=== PATIENT | female | born 1965 | race Caucasian/White ===

== ENCOUNTER → 2017-11-30 07:49 | Outpatient (CLI) | payer BC, SELFPAY ==
--- NOTE | 2017-12-01 09:49 | LEAS ---
Arterial Study - Arterial Study Arterial Study: This is a 52-year-old female with a history of smoking. The patient presents with paresthesias and discoloration in her right foot, associated with pain and discomfort. Suspecting the presence of atherosclerotic peripheral arterial occlusive disease, the patient was brought to the noninvasive vascular laboratory at this time for the purpose of bilateral noninvasive lower extremity arterial assessment. Doppler signal assessment was used to evaluate the pulses at ankle level bilaterally. On the right, the posterior tibial and dorsalis pedis pulses were biphasic. The left posterior tibial pulse was triphasic. The left dorsalis pedis pulse was biphasic. Segmental limb pressures were obtained bilaterally. The right low thigh pressure was measured at 106 mmHg. The right calf pressure was measured at 109 mmHg. The right ankle pressure, as determined by posterior tibial pulse, was measured at 98 mmHg. The right ankle pressure, as determined by dorsalis pedis pulse, was measured at 95 mmHg. The right digital pressure was measured at 86 mmHg. The left ankle pressure, as determined by posterior tibial pulse, was measured at 137 mmHg. The left ankle pressure, as determined by dorsalis pedis pulse, was measured at 136 mmHg. The left digital pressure was measured at 75 mmHg. Pulse-volume recordings were obtained bilaterally and segmentally. Waveform amplitudes appeared to be diminished at ankle and digital levels bilaterally. Resting ankle-brachial indices were calculated bilaterally. The resting right ankle-brachial index was calculated to be 0.85. The resting left ankle-brachial index was calculated to be 1.19. Digital-brachial indices were calculated bilaterally. The right digital-brachial index was calculated to be 0.75. The left digital-brachial index was calculated to be 0.65. Impression: Based upon the findings of this resting noninvasive lower extremity arterial study, there is evidence of mild arterial occlusive disease in the lower extremities bilaterally. Biphasic waveforms are noted at ankle level on the right. Triphasic and biphasic waveforms were noted at ankle level on the left. The resting right ankle-brachial index is mildly diminished, suggesting mild impairment of arterial flow at ankle level in the right lower extremity. The resting left ankle-brachial index is normal, suggesting relatively normal arterial flow to ankle level in the left lower extremity. The right digital-brachial index is normal. The left digital-brachial index is mildly diminished, suggesting the presence of mild, distal, small-vessel arterial occlusive disease in the left lower extremity. Clinical correlation is advised.
--- NOTE | 2017-12-01 09:57 | LEAS_ITS ---
Arterial Study - Arterial Study Arterial Study: This is a 52-year-old female with a history of smoking. The patient presents with paresthesias and discoloration in her right foot, associated with pain and discomfort. Suspecting the presence of atherosclerotic peripheral arterial occlusive disease, the patient was brought to the noninvasive vascular laboratory at this time for the purpose of bilateral noninvasive lower extremity arterial assessment. Doppler signal assessment was used to evaluate the pulses at ankle level bilaterally. On the right, the posterior tibial and dorsalis pedis pulses were biphasic. The left posterior tibial pulse was triphasic. The left dorsalis pedis pulse was biphasic. Segmental limb pressures were obtained bilaterally. The right low thigh pressure was measured at 106 mmHg. The right calf pressure was measured at 109 mmHg. The right ankle pressure, as determined by posterior tibial pulse, was measured at 98 mmHg. The right ankle pressure, as determined by dorsalis pedis pulse, was measured at 95 mmHg. The right digital pressure was measured at 86 mmHg. The left ankle pressure, as determined by posterior tibial pulse, was measured at 137 mmHg. The left ankle pressure, as determined by dorsalis pedis pulse, was measured at 136 mmHg. The left digital pressure was measured at 75 mmHg. Pulse-volume recordings were obtained bilaterally and segmentally. Waveform amplitudes appeared to be diminished at ankle and digital levels bilaterally. Resting ankle-brachial indices were calculated bilaterally. The resting right ankle-brachial index was calculated to be 0.85. The resting left ankle- brachial index was calculated to be 1.19. Digital-brachial indices were calculated bilaterally. The right digital- brachial index was calculated to be 0.75. The left digital-brachial index was calculated to be 0.65. Impression: Based upon the findings of this resting noninvasive lower extremity arterial study, there is evidence of mild arterial occlusive disease in the lower extremities bilaterally. Biphasic waveforms are noted at ankle level on the right. Triphasic and biphasic waveforms were noted at ankle level on the left. The resting right ankle-brachial index is mildly diminished, suggesting mild impairment of arterial flow at ankle level in the right lower extremity. The resting left ankle-brachial index is normal, suggesting relatively normal arterial flow to ankle level in the left lower extremity. The right digital- brachial index is normal. The left digital-brachial index is mildly diminished , suggesting the presence of mild, distal, small-vessel arterial occlusive disease in the left lower extremity. Clinical correlation is advised.
== END ==
PROVIDERS: Family Provider Family Medicine; PCP Family Medicine; Visit Provider Podiatrist
DX: I73.89 Other specified peripheral vascular diseases (principal); G90.09 Other idiopathic peripheral autonomic neuropathy
CPT/HCPCS: 93923

== ENCOUNTER → 2018-01-02 06:28 | Outpatient (CLI) | payer BC, SELFPAY ==
--- NOTE | 2018-01-02 10:48 | NEURO ---
NCS and/or EMG Patient Report Ordering Doctor: Nic Mendiola DATE OF SERVICE: 01/02/18 Amelia Hester is a 52-year-old female who presents for electrodiagnostic testing of the lower limbs. She has chief complaint of burning in both feet. Electrodiagnostic findings: Peroneal motor nerve demonstrates normal distal latency amplitude and conduction velocity bilaterally. Normal tibial motor response bilaterally. Normal tibial and peroneal F waves. Normal H reflex bilaterally. Sensory responses are within normal limits. On needle EMG, complex repetitive discharges are noted in the left anterior tibialis. All other muscles tested showed no evidence of denervation with normal motor unit action potentials. Electrodiagnostic impression: This is an abnormal study. 1. Electrodiagnostic findings demonstrate some old denervation in the left L5 dermatome, as evidenced by the presence of complex repetitive discharges on needle EMG. This is a relatively nonspecific finding. 2. There is no electrodiagnostic evidence for acute lumbosacral radiculopathy. 3. There is no electrodiagnostic evidence for peripheral polyneuropathy. If any further questions please not hesitate contact me
== END ==
PROVIDERS: Family Provider Family Medicine; PCP Family Medicine; Visit Provider Podiatrist
DX: I73.89 Other specified peripheral vascular diseases (principal); G90.09 Other idiopathic peripheral autonomic neuropathy
CPT/HCPCS: 95886; 95912

== ENCOUNTER → 2018-01-02 14:25 | Outpatient (CLI) | payer BC, SELFPAY ==
--- NOTE | 2018-01-02 14:28 | BI_ITS ---
MAMMOGRAPHY - BILATERAL SCREENING REASON FOR EXAM: Female, 52 years old. Routine annual screening examination. PERTINENT HISTORY: Grandmother with breast cancer. TECHNIQUE: Digital bilateral breast meg (3D mammographic acquisition) in the CC and MLO projections. 2-D mediolateral oblique (MLO) and craniocaudad (CC) views of both breasts were obtained. CAD: Full Field Digital Mammography with Computer Added Detection was performed. COMPARISON: Comparison is made with prior study dated December 07, 2016 and August 14, 2014. FINDINGS: Breast Composition: The breasts are extremely dense, which lowers the sensitivity of mammography. There are no dominant masses or suspicious calcifications. No other significant abnormalities are identified. There has been no significant change since the prior study. BI/SCREENING MAMM (CAD), BILAT IMPRESSION: Stable bilateral screening mammogram. Yearly follow-up mammogram recommended. (A) ASSESSMENT CATEGORY: BIRADS Category 1: Negative. A letter regarding these results will be sent to the patient by the facility within 30 days. Approximately 10% of breast cancers are not detected by mammography. A normal mammogram should not delay biopsy of a clinically suspicious abnormality. [id number] Electronically Signed: Aime Zimmerman MD at 15:20 EDT Tel [phone], Service support ,
== END ==
PROVIDERS: Family Provider Family Medicine; PCP Family Medicine; Visit Provider Nurse Practitioner Family
DX: Z12.31 Encounter for screening mammogram for malignant neoplasm of breast (principal); Z80.3 Family history of malignant neoplasm of breast
CPT/HCPCS: 77062; 77063; 77067; G0279

== ENCOUNTER → 2018-12-06 07:30 | Outpatient (CLI) | payer BC, SELFPAY ==
--- NOTE | 2018-12-06 07:38 | AAVD_ITS ---
Reason For Study: Atherosclerosis Aorta Measurements Aorta Doppler Measurements Proximal aorta measures1.78 x 1.72cm. in cross- Peak systolic flow velocities within the proximal sectional axis. aorta measure 74.3 cm/sec. Proximal aorta measures1.76cm. in longitudinal Peak systolic flow velocities within the mid aorta axis. measure 52.5 cm/sec. Mid aorta measures0.99 x 0.96cm. in cross- Peak systolic flow velocities within the distal sectional axis. aorta measure 48.7 cm/sec. Mid aorta measures0.96cm. in longitudinal axis. Distal aorta measures0.83 x 0.85cm. in cross- sectional axis. Distal aorta measures0.83cm. in longitudinal axis. Left Iliac Artery Left iliac artery measures 0.43 x 0.45 cm. in the cross-sectional axis. Left iliac artery measures 0.48 cm. in the longitudinal axis. Peak systolic velocity in the left iliac artery measures 253.4 cm/sec. Right Iliac Artery Right iliac artery measures 0.40 x 0.40 cm. in the cross-sectional axis. Right iliac artery measures 0.44 cm. in the longitudinal axis. Peak systolic velocity in the right iliac artery measures 85.5 cm/sec. Procedure Aorta IVC Iliac vasculature or bypass grafts [id number]. Exam performed in department. Interpretation Summary 1. no arortic aneurysm or stenosis. 2. Left common iliac moderate stenosis. Ordering Physician: Karl Silver Referring Physician: Yeison Miner Performed By: Padmaja Sherwood RVT
== END ==
PROVIDERS: Referring Provider Surgery Vascular Surgery; Visit Provider Surgery Vascular Surgery
DX: I70.211 Atherosclerosis of native arteries of extremities with intermittent claudication, right leg (principal); F17.210 Nicotine dependence, cigarettes, uncomplicated; D64.9 Anemia, unspecified; M79.671 Pain in right foot; M79.672 Pain in left foot
CPT/HCPCS: 93978

== ENCOUNTER → 2019-02-05 16:12 | Outpatient (CLI) | payer BC, SELFPAY ==
--- NOTE | 2019-02-05 16:15 | BI_ITS ---
MAMMOGRAPHY - BILATERAL SCREENING 3-D TOMOSYNTHESIS REASON FOR EXAM: Female, 53 years old. Bilateral Screening 3-D tomosynthesis PERTINENT HISTORY: Maternal also paternal grandmother, paternal aunt with history of breast cancer. TECHNIQUE: 2-D mammograms and 3-D Tomosynthesis of the breast (s) were performed. CAD was performed. COMPARISON: 01/02/2018, 12/07/2016, and 08/19/2014 FINDINGS: The breast composition is heterogeneously dense that can obscure small breast masses. Scattered benign calcifications are seen. No dense spiculated masses or suspicious microcalcifications are identified. No architectural distortion is identified. There is no skin thickening or retraction. There has been no significant change since the prior study. BI/SCREEN MAMM (CAD) W/ABHI BILAT IMPRESSION: No mammographic signs of malignancy. Routine yearly mammograms recommended. ASSESSMENT CATEGORY: BIRADS Category 2: Benign. A letter regarding these results will be sent to the patient by the facility within 30 days. FOLLOW UP RECOMMENDATION: Yearly follow up mammogram recommended. (A) Approximately 10% of breast cancers are not detected by mammography. A normal mammogram should not delay biopsy of a clinically suspicious abnormality. Electronically Signed: Kem Arrieta MD at 14:10 EDT Tel [phone], Service support ,
== END ==
DX: Z12.31 Encounter for screening mammogram for malignant neoplasm of breast (principal)
CPT/HCPCS: 77063; 77067

== ENCOUNTER → 2020-03-11 17:00 | Outpatient (CLI) | payer OTHER, SELFPAY ==
--- NOTE | 2020-03-11 16:40 | BI_ITS ---
MAMMOGRAPHY - BILATERAL SCREENING REASON FOR EXAM: Female, 54 years old. Routine annual screening examination. PERTINENT HISTORY: Grandmothers with breast cancer. Aunt with breast cancer. TECHNIQUE: Digital bilateral breast abhi (3D mammographic acquisition) in the CC and MLO projections. 2-D mediolateral oblique (MLO) and craniocaudad (CC) views of both breasts were obtained. CAD: Full Field Digital Mammography with Computer Added Detection was performed. COMPARISON: Comparison is made with prior study dated 02/05/2019 and 01/02/2018. FINDINGS: Breast Composition: The breasts are extremely dense, which lowers the sensitivity of mammography. There are no dominant masses or suspicious calcifications. No other significant abnormalities are identified. There has been no significant change since the prior study. BI/SCREEN MAMM (CAD) W/ABHI BILAT IMPRESSION: Stable bilateral screening mammogram. Yearly follow-up mammogram recommended. (A) ASSESSMENT CATEGORY: BIRADS Category 1: Negative. A letter regarding these results will be sent to the patient by the facility within 30 days. Approximately 10% of breast cancers are not detected by mammography. A normal mammogram should not delay biopsy of a clinically suspicious abnormality. [id number] Electronically Signed: Aime Zimmerman, at 8:19 EDT , Service support ,
== END ==
PROVIDERS: Referring Provider Nurse Practitioner Family; Visit Provider Nurse Practitioner Family
DX: Z12.31 Encounter for screening mammogram for malignant neoplasm of breast (principal); Z80.3 Family history of malignant neoplasm of breast
CPT/HCPCS: 77063; 77067

== ENCOUNTER → 2020-05-04 07:48 | Outpatient (CLI) | payer OTHER, SELFPAY ==
--- NOTE | 2020-05-04 07:52 | ART_ITS ---
Reason For Study: Atherosclerosis Procedure A bilateral lower extremity continuous wave Doppler with analog waveform analysis and ankle brachial indexes. Left Segmental Pressures Left brachial= 139mmHg. Left posterior tibial artery = 128mmHg. Left dorsalis pedis artery = 95mmHg. The left dorsalis pedis waveforms are biphasic. The left posterior tibial artery waveforms are biphasic. Right Segmental Pressures Right brachial= 140mmHg. Right posterior tibial artery = 123mmHg. Right dorsalis pedis artery = 109mmHg. The right dorsalis pedis waveforms are biphasic. The right posterior tibial artery waveforms are biphasic. Indices The right ankle brachial index by the dorsalis pedis is 0.78. The right ankle brachial index by the posterior tibial artery is 0.88. The left ankle brachial index by the dorsalis pedis is 0.68. The left ankle brachial index by the posterior tibial artery is 0.91. Interpretation Summary Bilateral mild occlussive disease with LORI 0.88 and 0.91 with biphasic flow bilaterally. Ordering Physician: Karl Silver Referring Physician: Yeison Rutherford Performed By: Padmaja Sherwood RVT
--- NOTE | 2020-05-04 07:53 | AAVD_ITS ---
Reason For Study: Atherosclerosis Aorta Measurements Aorta Doppler Measurements Proximal aorta measures2.02 x 2.04cm. in cross- Peak systolic flow velocities within the proximal sectional axis. aorta measure 76.2 cm/sec. Proximal aorta measures2.02cm. in longitudinal Peak systolic flow velocities within the mid aorta axis. measure 49.7 cm/sec. Mid aorta measures1.12 x 1.15cm. in cross- Peak systolic flow velocities within the distal sectional axis. aorta measure 54.4 cm/sec. Mid aorta measures1.16cm. in longitudinal axis. Distal aorta measures1.02 x 1.02cm. in cross- sectional axis. Distal aorta measures1.00cm. in longitudinal axis. Left Iliac Artery Left iliac artery measures 0.55 x 0.56 cm. in the cross-sectional axis. Left iliac artery measures 0.58 cm. in the longitudinal axis. Peak systolic velocity in the left iliac artery measures 119.8 cm/sec. Right Iliac Artery Right iliac artery measures 0.36 x 0.34 cm. in the cross-sectional axis. Right iliac artery measures 0.43 cm. in the longitudinal axis. Peak systolic velocity in the right iliac artery measures 107 cm/sec. Procedure Aorta IVC Iliac vasculature or bypass grafts [id number]. Exam performed in department. Interpretation Summary No aortoiliac stenosis or aneurysm. Ordering Physician: Karl Silver Referring Physician: Yeison Rutherford Performed By: Padmaja Sherwood RVT
== END ==
LOC: CVS 07:50
PROVIDERS: Referring Provider Surgery Vascular Surgery; Visit Provider Surgery Vascular Surgery
DX: I70.211 Atherosclerosis of native arteries of extremities with intermittent claudication, right leg (principal); M79.671 Pain in right foot; M79.672 Pain in left foot; F17.200 Nicotine dependence, unspecified, uncomplicated
CPT/HCPCS: 93922; 93978

== ENCOUNTER → 2021-03-15 07:07 | Outpatient (CLI) | payer OTHER, SELFPAY ==
--- NOTE | 2021-03-15 07:10 | BI_ITS ---
MAMMOGRAPHY - BILATERAL SCREENING REASON FOR EXAM: Female, 55 years old. Routine annual screening examination. PERTINENT HISTORY: Grandmother with breast cancer. Aunt with breast cancer. TECHNIQUE: Digital bilateral breast abhi (3D mammographic acquisition) in the CC and MLO projections. 2-D mediolateral oblique (MLO) and craniocaudad (CC) views of both breasts were obtained. CAD: Full Field Digital Mammography with Computer Added Detection was performed. COMPARISON: Comparison is made with prior study dated 03/11/2020 and 02/05/2019. FINDINGS: Breast Composition: The breasts are extremely dense, which lowers the sensitivity of mammography. There are no dominant masses or suspicious calcifications. No other significant abnormalities are identified. There has been no significant change since the prior study. BI/SCRN MAMM (CAD)W/ABHI BILAT IMPRESSION: Stable bilateral screening mammogram. Yearly follow-up mammogram recommended. (A) ASSESSMENT CATEGORY: BIRADS Category 1: Negative. A letter regarding these results will be sent to the patient by the facility within 30 days. Approximately 10% of breast cancers are not detected by mammography. A normal mammogram should not delay biopsy of a clinically suspicious abnormality. [id number] Electronically Signed: Aime Zimmerman MD at 8:26 EDT , Service support ,
== END ==
PROVIDERS: PCP Nurse Practitioner Family; Referring Provider Nurse Practitioner Family; Visit Provider Nurse Practitioner Family
DX: Z12.31 Encounter for screening mammogram for malignant neoplasm of breast (principal)
CPT/HCPCS: 77063; 77067

== ENCOUNTER 2021-08-30 08:47 | Outpatient (CLI) | payer OTHER, SELFPAY ==
--- NOTE | 2021-08-30 09:02 | AAVD_ITS ---
Reason For Study: Atherosclerosis w/ claudication Aorta Measurements Aorta Doppler Measurements Proximal aorta measures1.72 x 1.76cm. in cross- Peak systolic flow velocities within the proximal sectional axis. aorta measure 74.3 cm/sec. Proximal aorta measures1.75cm. in longitudinal Peak systolic flow velocities within the mid aorta axis. measure 54.5 cm/sec. Mid aorta measures1.09 x 1.05cm. in cross- Peak systolic flow velocities within the distal sectional axis. aorta measure 61.1 cm/sec. Mid aorta measures1.08cm. in longitudinal axis. Distal aorta measures1.04 x 1.06cm. in cross- sectional axis. Distal aorta measures1.05cm. in longitudinal axis. Left Iliac Artery Left iliac artery measures 0.55 x 0.55 cm. in the cross-sectional axis. Left iliac artery measures 0.61 cm. in the longitudinal axis. Peak systolic velocity in the left iliac artery measures 154.9 cm/sec. Right Iliac Artery Right iliac artery measures 0.52 x 0.57 cm. in the cross-sectional axis. Right iliac artery measures 0.54 cm. in the longitudinal axis. Peak systolic velocity in the right iliac artery measures 111.1 cm/sec. Procedure Aorta IVC Iliac vasculature or bypass grafts [id number]. Exam performed in department. VL/Abd Aortic/IVC Duplex scan Interpretation Summary No evidence of aortic iliac stenosis or aneurysm noted. Ordering Physician: Karl Silver Referring Physician: Yeison Miner Performed By: Padmaja Sherwood RVT
--- NOTE | 2021-08-30 09:05 | ART_ITS ---
Reason For Study: Atherosclerosis w/ claudication Procedure A bilateral lower extremity continuous wave Doppler with analog waveform analysis and ankle brachial indexes. Left Segmental Pressures Left brachial= 103mmHg. Left posterior tibial artery = 105mmHg. Left dorsalis pedis artery = 102mmHg. Left digit = 87 mmHg. The left dorsalis pedis waveforms are biphasic. The left posterior tibial artery waveforms are biphasic. Right Segmental Pressures Right brachial= 133mmHg. Right posterior tibial artery = 104mmHg. Right dorsalis pedis artery = 85mmHg. Right digit = 90 mmHg. The right dorsalis pedis waveforms are biphasic. The right posterior tibial artery waveforms are biphasic. Indices The right ankle brachial index by the dorsalis pedis is 0.64. The right ankle brachial index by the posterior tibial artery is 0.78. The right digital-brachial index is 0.68. The left ankle brachial index by the dorsalis pedis is 0.77. The left ankle brachial index by the posterior tibial artery is 0.79. The left digital-brachial index is 0.65. VL/Ankle Brachial Index Interpretation Summary Bilateral mild occlusive disease with an LORI 0.78 on the right and 0.79 on the left. Ordering Physician: Karl Silver Referring Physician: Yeison Miner Performed By: Padmaja Sherwood RVT
--- NOTE | 2021-08-30 09:08 | CDU_ITS ---
Reason For Study: Dizziness Rt. Velocities/BP Lt. Velocities/BP Prox CCA 99.5/38.2 cm/sec. Prox CCA 94.9/33.5 cm/sec. Mid CCA 86.5/30.4 cm/sec. Mid CCA 97.4/36 cm/sec. Dist CCA 89.1/33 cm/sec. Dist CCA 106/44.6 cm/sec. Prox ICA 84.6/29.8 cm/sec. Prox ICA 93.7/29.8 cm/sec. Mid ICA 101/40.7 cm/sec. Mid ICA 114.8/40.2 cm/sec. Dist ICA 104.7/38.9 cm/sec. Dist ICA 108.2/42.4 cm/sec. Rt. ICA/CCA = 1.18. Lt. ICA/CCA = 1.18. Prox ECA 145.5/20.4 cm/sec. Prox ECA 210.6/31.9 cm/sec. Rt. Vert. 76.5/28.6 cm/sec. Lt. Vert. 42.1 cm/sec. Right Extracranial There is heterogeneous, irregular atherosclerotic plaque noted in the right common carotid artery. There is heterogeneous, irregular atherosclerotic plaque noted in the right internal carotid artery. There is heterogeneous, irregular atherosclerotic plaque noted in the right external carotid artery. Antegrade flow is noted in the right vertebral artery. Left Extracranial There is heterogeneous, irregular atherosclerotic plaque noted in the left common carotid artery. There is heterogeneous, smooth atherosclerotic plaque noted in the left internal carotid artery. There is heterogeneous, irregular atherosclerotic plaque noted in the left external carotid artery. Abnormal waveform morphology noted in the left vertebral artery. Procedure Carotid Duplex [id number]. This is a Carotid Duplex examination using B-mode, color flow and specral Doppler. Exam performed in department. VL/Carotid Duplex Ultrasound Interpretation Summary Mild (<50%) stenosis right extracranial internal carotid. Mild (<50%) stenosis left extracranial internal carotid. Flow within the left verterbral artery is retrograde, consist ent with a subclavian steal phenomenon. Ordering Physician: Yeison Miner Referring Physician: Karl Silver Performed By: Padmaja Sherwood RVT
== END 2021-08-30 23:59 | disposition home or self-care (01) ==
LOC: CVS 08:51
PROVIDERS: PCP Nurse Practitioner Family; Referring Provider Surgery Vascular Surgery; Visit Provider Surgery Vascular Surgery
DX: R42 Dizziness and giddiness (principal); I70.211 Atherosclerosis of native arteries of extremities with intermittent claudication, right leg; M79.671 Pain in right foot; M79.672 Pain in left foot; F17.210 Nicotine dependence, cigarettes, uncomplicated
CPT/HCPCS: 93880; 93922; 93978

== ENCOUNTER 2022-03-02 07:49 | Outpatient (CLI) | payer OTHER, SELFPAY ==
--- NOTE | 2022-03-02 07:55 | ECHOD_ITS ---
Reason For Study: BRUIT Procedure This was a 2D Doppler, Color Flow transthoracic echocardiogram. The study was technically difficult. Exam performed in department. Left Ventricle Normal LV size. Left ventricular systolic function is normal. The estimated ejection fraction is 65 %. No evidence for diastolic dysfunction. No regional wall motion abnormalities noted. Right Ventricle Normal RV size. Normal systolic function. Atria Normal left atrium. Normal right atrium. No doppler evidence for ASD. Mitral Valve There is no mitral annular calcification. Normal mitral valve. Trivial mitral valve insufficiency. Tricuspid Valve Normal tricuspid valve. Trivial tricuspid valve insufficiency. Right ventricular systolic pressure estimated to be 28 mmHg. Aortic Valve The aortic valve is not well visualized. Pulmonic Valve The pulmonic valve is not well visualized. Great Vessels The aortic root is not well visualized. Pericardium/Pleural No pericardial effusion. MMode/2D Measurements & Calculations LVIDd: 4.3 cm IVSd: 0.63 cm LAV(MOD-bp): 40.3 ml LVIDs: 2.5 cm LVPWd: 0.90 cm LAV(MOD-bp) Indexed: 24.2 ml/m2 RVDd: 3.3 cm FS: 42.7 % LAV(MOD-sp2): 60.2 ml LAV(MOD-sp4): 25.8 ml SV(MOD-sp4): 33.1 ml SV(sp4-el): 34.6 ml LVAd ap4: 20.6 cm2 LVLd ap4: 7.7 cm EDV(MOD-sp4): 45.6 ml EDV(sp4-el): 46.8 ml LVAs ap4: 9.4 cm2 LVLs ap4: 6.1 cm ESV(MOD-sp4): 12.6 ml ESV(sp4-el): 12.2 ml EF(MOD-sp4): 72.4 % EF(sp4-el): 73.9 % LA A4 area: 12.6 cm2 RA A4 area: 13.7 cm2 Time Measurements MV dec time: 0.11 sec Doppler Measurements & Calculations MV E max julito: 69.7 cm/sec Lat Peak E' Julito: 13.1 cm/sec Med Peak E' Julito: 7.7 cm/sec MV A max julito: 55.9 cm/sec E/E' lat: 5.3 E/E' med: 9.0 MV E/A: 1.2 MV V2 max: 93.8 cm/sec MV dec slope: 1042 cm/sec2 Ao V2 max: 140.2 cm/sec MV max P.5 mmHg Ao max P.9 mmHg MV V2 mean: 54.0 cm/sec Ao V2 mean: 99.5 cm/sec MV mean P.3 mmHg Ao mean P.4 mmHg MV V2 VTI: 27.3 cm Ao V2 VTI: 32.1 cm LV V1 max: 130.5 cm/sec PA V2 max: 65.7 cm/sec TR max julito: 251.7 cm/sec LV V1 max P.8 mmHg TR max P.3 mmHg LV V1 mean P.4 mmHg LV V1 mean: 86.7 cm/sec LV V1 VTI: 29.9 cm ECHO/Echo Complete Interpretation Summary The study was technically difficult. Left ventricular systolic function is normal. The estimated ejection fraction is 65 %. Trivial mitral valve insufficiency. Trivial tricuspid valve insufficiency. Right ventricular systolic pressure estimated to be 28 mmHg. No evidence for diastolic dysfunction. Ordering Physician: Yeison Miner Performed By: Tori Billings RCS
== END 2022-03-02 23:59 | disposition home or self-care (01) ==
LOC: CVS 07:54
PROVIDERS: PCP Nurse Practitioner Family; Visit Provider Nurse Practitioner Family
DX: R60.0 Localized edema (principal); R09.89 Other specified symptoms and signs involving the circulatory and respiratory systems; I34.0 Nonrheumatic mitral (valve) insufficiency; R00.2 Palpitations; I07.1 Rheumatic tricuspid insufficiency; I70.8 Atherosclerosis of other arteries
CPT/HCPCS: 93306

== ENCOUNTER → 2022-03-21 | Outpatient (CLI) | payer OTHER, SELFPAY ==
--- NOTE | 2022-03-21 09:54 | BI_ITS ---
MAMMOGRAPHY - BILATERAL SCREENING REASON FOR EXAM: Female, 56 years old. Routine annual screening examination. PERTINENT HISTORY: Grandmother with breast cancer. Aunt with breast cancer. TECHNIQUE: Digital bilateral breast abhi (3D mammographic acquisition) in the CC and MLO projections. 2-D mediolateral oblique (MLO) and craniocaudad (CC) views of both breasts were obtained. CAD: Full Field Digital Mammography with Computer Added Detection was performed. COMPARISON: Comparison is made with prior examination dated 03/15/2021 and 03/11/2020. FINDINGS: Breast Composition: The breasts are extremely dense, which lowers the sensitivity of mammography. There are no dominant masses or suspicious calcifications. No other significant abnormalities are identified. There has been no significant change since the prior study. BI/SCRN MAMM (CAD)W/ABHI BILAT IMPRESSION: Stable bilateral screening mammogram. Yearly follow-up mammogram recommended. (A) ASSESSMENT CATEGORY: BIRADS Category 1: Negative. A letter regarding these results will be sent to the patient by the facility within 30 days. Approximately 10% of breast cancers are not detected by mammography. A normal mammogram should not delay biopsy of a clinically suspicious abnormality. [id number] Electronically Signed: Aime Zimmerman MD at 12:47 EDT ,
== END | disposition home or self-care (01) ==
LOC: OPBI 09:51
PROVIDERS: PCP Nurse Practitioner Family; Visit Provider Nurse Practitioner Family
DX: Z12.31 Encounter for screening mammogram for malignant neoplasm of breast (principal); Z80.3 Family history of malignant neoplasm of breast
CPT/HCPCS: 77063; 77067

== ENCOUNTER 2022-08-17 06:06 | Day surgery (SDC) | payer OTHER, SELFPAY ==
[2022-08-17] VITALS (7 sets, daily range): BP systolic 79–94; BP diastolic 40–75; PULSE 82–109; RESP 16; TEMP 36.2–36.6; O2SAT 93–98; BMI 26.3
[2022-08-17] MEDS: Lactated Ringers 1,000 ML 15 ML IV (06:52)
--- NOTE | 2022-08-17 07:06 | HP.PCM_ITS ---
History and Physical Date of Admission: 08/17/22 56 F who presents to the office today for Initial consult. Amelia established with this clinic 04.21.22 with referral from PCP for diarrhea, abdominal discomfort and bloating present throughout the day with worsening with PO intake and rare nausea emesis (postprandial) since cholecystectomy with worsening to include nocturnal symptoms since cholecystectomy (RUQ pain/discomfort, nausea, vomiting, diarrhea. Dr. Salazar removed for reported stones, but she reports no stones following procedure) many years prior. Stone was then noted in bile duct, referred to someone on [place] who she reports was supposed to remove in office procedure. Then admitted to [facility] approximately 2009, underwent Sphincter of Oddi clipping and stent placement and later removed. Current smoker of 1PPD; stress level is generally mild but has had recent increase in stress at work. PCP attempted immodium (ineffective). Another medication that SE caused constipation but was ineffective, fiber (ineffective). PMH eosinophilia, anxiety, hyperlipidemia, leukocytosis, PVD, Raynaud?s phenomenon. Colonoscopy approximately 2014 without abnormality noted. Stool testing leukocytes, giardia, H.Pylori, stool culture. She reports normal results. ROS Const Constitutional: No anorexia, fatigue, fever(s), weight change or sleep problems Eyes Eyes: No change in vision ENT ENT: No abnormal hearing, difficulty swallowing, mouth lesions, tongue swelling or throat swelling Resp Respiratory: No cough or shortness of breath Cardio Cardiology: No chest pain at rest, chest pain with exertion, shortness of breath or dyspnea on exertion Gastro GI: No difficulty swallowing Genitourinary-Female: No difficulty urinating or burning urination Musc Musculoskeletal: No joint pain, joint swelling, muscle weakness or decreased muscle mass Skin Skin: No hair loss in leg, yellowing of the eye, itchy eyes, rash, skin ulcer or skin swelling Neuro Neurology: No abnormal hearing, abnormal movements, confusion, unsteady gait/balance or memory loss Psych Psychiatric: No anxiety, No confusion and No memory loss Endo Endocrine: No fatigue or weight change Aller/Imm Allergy/Immunologic: No itchy eyes, throat swelling or tongue swelling Bossman/Lymp Hematologic/Lymphatic: No easy bleeding, easy bruising or enlarged lymph nodes Quality Reporting Tobacco Screening ([facility] 138) Smoking Status: Current every day smoker Assessment and Plan Assessment and Plan (1) Diarrhea: ?Status:?Chronic ?Plan: The differential diagnosis for her diarrhea does include microscopic colitis collagenous colitis, celiac sprue, inflammatory bowel disease, IBS with diarrhea, exocrine pancreatic insufficiency.? She will undergo biochemical testing and stool testing.? We will also look for signs and symptoms of autoimmune disease may be contributing to her symptoms.? She does smoke cigarettes and nicotine is known to cause diarrhea.? Eventually she may need upper lower endoscopy plus or minus a capsule endoscopy for further evaluation pending the biochemical and stool work-up. (2) Abdominal bloating: ?Status:?Chronic ?Plan: Her nicotine could also be contributing to her bloating.? She has not taken any medicines for bloating at this time.? I do not want to empirically start her on anything until I have all the blood work back. ? ? ? Orders: Orders Comprehensive Metabolic Profil Today R14.0 - Abdominal distension (gaseous), R19.7 - Diarrhea, unspecified ? CRP Today R14.0 - Abdominal distension (gaseous), R19.7 - Diarrhea, unspecified ? LDH Today R14.0 - Abdominal distension (gaseous), R19.7 - Diarrhea, unspecified ? CBC W/Diff, Automated Today R14.0 - Abdominal distension (gaseous), R19.7 - Diarrhea, unspecified ? Erythrocyte Sed Rate Today R14.0 - Abdominal distension (gaseous), R19.7 - Diarrhea, unspecified ? COLBY Comprehensive Panel Today R19.7 - Diarrhea, unspecified ? Calprotectin, Stool Today R19.7 - Diarrhea, unspecified ? Stool Lactoferrin/WBC Today R14.0 - Abdominal distension (gaseous), R19.7 - Diarrhea, unspecified ? ANCA Today R14.0 - Abdominal distension (gaseous), R19.7 - Diarrhea, unspecified ? Celiac Disease Profile Today R14.0 - Abdominal distension (gaseous), R19.7 - Diarrhea, unspecified ? Immunoglobulins G/A/M/E Today R14.0 - Abdominal distension (gaseous), R19.7 - Diarrhea, unspecified ? NANCY + Protein Elect, Serum TodayK R14.0 - Abdominal distension (gaseous), R19.7 - Diarrhea, unspecified ? Miscellaneous Lab Procedure Today R19.7 - Diarrhea, unspecified ? Angiotensin Convert Enzyme Today R14.0 - Abdominal distension (gaseous), R19.7 - Diarrhea, unspecified ? Immunoglobulin A Today R14.0 - Abdominal distension (gaseous), R19.7 - Diarrhea, unspecified ? Immunoglobulin E Today R14.0 - Abdominal distension (gaseous), R19.7 - Diarrhea, unspecified ? Immunoglobulin G Today R14.0 - Abdominal distension (gaseous), R19.7 - Diarrhea, unspecified ? Immunoglobulin M Today R14.0 - Abdominal distension (gaseous), R19.7 - Diarrhea, unspecified ? Fecal Fat, Qualitative Today R14.0 - Abdominal distension (gaseous), R19.7 - Diarrhea, unspecified ? OVA+PARA w/Giardia EIA [id number] TodayK R14.0 - Abdominal distension (gaseous), R19.7 - Diarrhea, unspecified ? CDIFF (PCR) Today R14.0 - Abdominal distension (gaseous), R19.7 - Diarrhea, unspecified ? Stool Occult Blood iFOB Today R14.0 - Abdominal distension (gaseous), R19.7 - Diarrhea, unspecified ? Pancreatic Elastase, Fecal Today R14.0 - Abdominal distension (gaseous), R19.7 - Diarrhea, unspecified ? ENTERIC PATHOGEN PANEL STOOL Today K58.9 - Irritable bowel syndrome without diarrhea, R14.0 - Abdominal distension (gaseous), R19.7 - Diarrhea, unspecified ? I have examined the patient and the H&P has been reviewed. There are no clinical changes since date of exam.
--- NOTE | 2022-08-17 07:15 | EGD_PTH ---
PATIENT: KAMRYN FANG LOC: EN U#:[id number] AGE/SX: 56/F ROOM: RE08/17/[address]: Dr. Priyank Pham DO : 1965 BED: DIS: 08/17/2022 SPEC #: [id number] RECD: 08/17/22 11:31 STATUS: KIMBERLEY MALKA #: [id number] ELOISE: 08/17/22 07:[address]: Priyank Pham DEPT: SURGICAL PATHOLOGY RECD BY: Angela Cheek ENTERED: 08/17/22 13:17 SP TYPE: EGD BIOPSY OT DR: Yeison Miner, MANAGER [employer]HOUSE-C Tissues: A - Gastric mucous membrane B - Duodenum, NOS C - Esophagus, NOS D - Cecum, NOS E - COLON BIOPSY Procedures: Trichrome (control) Special Stain Group II Surgery Specimen Level IV Alcian Blue/PAS (control) HEADER OPERATION: Colonoscopy, biopsies, EGD (MAC) PRE-OP DIAGNOSIS: Diarrhea, abdominal bloating TISSUE SUBMITTED: A ? Gastric ulcer biopsy, B ? Duodenum biopsy, C ? Distal esophagus biopsy, D ? Cecal biopsy, E ? Random colon biopsies MICROSCOPIC DIAGNOSIS A. Gastric ulcer, biopsy: Mild gastritis. See microscopic description and comment. B. Duodenum, biopsy: Fragments of duodenal mucosa with mild Shira gland hyperplasia. C. Distal esophagus, biopsy: Fragments of gastroesophageal mucosa with rare cells with intestinal metaplasia (goblet cell metaplasia). Mild chronic inflammation. Negative for dysplasia. See comment. D. 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 See comment. E. 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 See comment. SJ:rg 08/18/2022 COMMENT A. The results of immunohistochemistry for Helicobacter pylori will be reported separately ([id number]). B. Alcian blue/PAS stain with matched control is used in the evaluation of the specimen. D & E. Trichrome stain with matched control is used in the evaluation of the specimen and shows focal thickening of subepithelial collagen band. Correlation with clinical, endoscopic findings and appropriate follow up are necessary. MICROSCOPIC DESCRIPTION Slides are reviewed. A. The specimen shows fragments of gastric mucosa with chronic inflammatory cell infiltrates in the lamina propria consisting of lymphocytes and plasma cells, consistent with mild chronic gastritis. GROSS DESCRIPTION A - Received in fixative is one container labeled with the patient's name and designated gastric ulcer biopsy. The specimen consists of multiple irregular fragments of light beltre soft tissue that in aggregate measure 1.5 x 0.3 x 0.1 cm. The specimen is totally submitted in one cassette. B - Received in fixative is one container labeled with the patient's name and designated duodenum biopsy. The specimen consists of multiple irregular fragments of light beltre soft tissue that in aggregate measure 1.0 x 0.3 x 0.1 cm. The specimen is totally submitted in one cassette. C - Received in fixative is one container labeled with the patient's name and designated distal esophagus biopsy. The specimen consists of two irregular fragments of light beltre soft tissue that in aggregate measure 0.6 x 0.3 x 0.1 cm. The specimen is totally submitted in one cassette. D - Received in fixative is one container labeled with the patient's name and designated cecal biopsy. The specimen consists of multiple irregular fragments of light beltre soft tissue that in aggregate measure 0.6 x 0.3 x 0.1 cm. The specimen is totally submitted in one cassette. E - Received in fixative is one container labeled with the patient's name and designated random colon biopsy. The specimen consists of multiple irregular fragments of light beltre soft tissue that in aggregate measure 1.0 x 0.5 x 0.1 cm. The specimen is totally submitted in one cassette. / SJ:anaya 08/17/2022 TC:3 CPT: 47189 x5, 15346 x3
--- NOTE | 2022-08-17 07:15 | IMM_PTH ---
PATIENT: KAMRYN FANG LOC: EN U#:[id number] AGE/SX: 56/F ROOM: RE08/17/[address]: Dr. Priyank Pham DO : 1965 BED: DIS: 08/17/2022 SPEC #: [id number] RECD: 08/17/22 14:14 STATUS: KIMBERLEY RESherin #: [id number] ELOISE: 08/17/22 07:[address]: Priyank Pham DEPT: IMMUNOHISTOCHEMISTRY RECD BY: Vaishali Daniel ENTERED: 08/17/22 14:14 SP TYPE: IMMUNO OT DR: Yeison Miner, USED CAR RENOVATOR-C Tissues: A - Stomach, NOS Procedures: H Pylori (initial) PHYSICIAN & INSTITUTION [place] [address] SPECIMEN INFORMATION: Tissue Source: A ? Gastric ulcer Clinical Info: Diarrhea, abdominal bloating Specimen Number: [id number] CPT code: 82714 METHODOLOGY: Deparaffinized sections of prefer/formalin-fixed tissue or PAP/DQ stained slides are incubated with monoclonal/polyclonal antibodies/oligonucleotide probes. Localization is made via biotin free immunoperoxidase method. Appropriate controls are performed and reacted as expected. Results on target cell population are indicated in the following table: RESULTS: ANTIBODY / CLONE RESULT Block A H Pylori (polyclonal) negative These tests were developed and their performance characteristics determined by [facility]. They may not have been cleared or approved by the U.S. Food and Drug Administration. The FDA has determined that such clearance or approval is not necessary. The above immunohistochemical/dualISH markers are ordered and reviewed by the Pathologist. INTERPRETATION: A. Gastric ulcer, biopsy: Negative for Helicobacter pylori organisms. SJ:anaya 08/18/2022
--- NOTE | 2022-08-17 07:45 | OP.EGD_ITS ---
Patient Name: Amelia Hester Procedure Date: 08/17/2022 6:58 AM Date of : 1965 Age: 56 Procedure: Upper GI endoscopy Indications: Epigastric abdominal pain, Dyspepsia Providers: Priyank Pham DO Referring MD: Priyank Pham DO Medicines: Monitored Anesthesia Care Patient Profile: This is a 56 year old female. Refer to note in patient chart for documentation of history and physical. Patient has symptoms of chronic abdominal cramping and acute epigastric abdominal pain. Complications: No immediate complications. Procedure: Pre-Anesthesia Assessment: - Prior to the procedure, a History and Physical was performed, and patient medications and allergies were reviewed. The risks and benefits of the procedure and the sedation options and risks were discussed with the patient. All questions were answered and informed consent was obtained. Patient identification and proposed procedure were verified by the physician in the pre-procedure area. Mental Status Examination: alert and oriented. Airway Examination: normal oropharyngeal airway and neck mobility. Respiratory Examination: clear to auscultation. CV Examination: normal. Prophylactic Antibiotics: The patient does not require prophylactic antibiotics. Prior Anticoagulants: The patient has taken no previous anticoagulant or antiplatelet agents. ASA Grade Assessment: II - A patient with mild systemic disease. After reviewing the risks and benefits, the patient was deemed in satisfactory condition to undergo the procedure. The anesthesia plan was to use monitored anesthesia care (MAC). Immediately prior to administration of medications, the patient was re-assessed for adequacy to receive sedatives. The heart rate, respiratory rate, oxygen saturations, blood pressure, adequacy of pulmonary ventilation, and response to care were monitored throughout the procedure. The physical status of the patient was re-assessed after the procedure. After obtaining informed consent, the endoscope was passed under direct vision. Throughout the procedure, the patient's blood pressure, pulse, and oxygen saturations were monitored continuously. The colonoscope was introduced through the mouth, and advanced to the second part of duodenum. The upper GI endoscopy was accomplished without difficulty. The patient tolerated the procedure well. Scope In: 7:12:18 AM Scope Out: 7:19:53 AM Total Procedure Duration Time 0 hours 7 minutes 35 seconds Findings: Non-severe esophagitis with no bleeding was found 35 to 37 cm from the incisors. Biopsies were taken with a cold forceps for histology. Verification of patient identification for the specimen was done. Estimated blood loss was minimal. Two oozing cratered gastric ulcers with pigmented material were found in the gastric body. The largest lesion was 6 mm in largest dimension. Biopsies were taken with a cold forceps for histology. Verification of patient identification for the specimen was done. Estimated blood loss was minimal. Patchy mild inflammation characterized by congestion (edema) and friability was found in the duodenal bulb, in the first portion of the duodenum and in the second portion of the duodenum. Biopsies were taken with a cold forceps for histology. Verification of patient identification for the specimen was done. Estimated blood loss was minimal. Impression: - Non-severe reflux esophagitis. Biopsied. - Oozing gastric ulcers with pigmented material. Biopsied. - Duodenitis. Biopsied. Recommendation: - Discharge patient to home. - Resume previous diet. - Use sucralfate tablets 1 gram PO TID for 2 months. - Continue present medications. Procedure Code(s): --- Professional --- 75879, Esophagogastroduodenoscopy, flexible, transoral; with biopsy, single or multiple CPT copyright 2017 [employer]. All rights reserved. The codes documented in this report are preliminary and upon network systems consultant review may be revised to meet current compliance requirements. Priyank Pham DO 08/17/2022 7:44:49 AM This report has been signed electronically. Number of Addenda: 0 Note Initiated On: 08/17/2022 6:58 AM
--- NOTE | 2022-08-17 07:45 | OP.CCLET_ITS ---
08/17/2022 Yeison Miner Re : Upper GI endoscopy procedure for Amelia Hester Dear Isidra This procedure was performed on August. My impressions and recommendations are as follows: Impressions : - Non-severe reflux esophagitis. Biopsied. - Oozing gastric ulcers with pigmented material. Biopsied. - Duodenitis. Biopsied. Recommendations : - Discharge patient to home. - Resume previous diet. - Use sucralfate tablets 1 gram PO TID for 2 months. - Continue present medications. My findings are described in the full procedure note, which is enclosed. If I can be of further assistance, please feel free to contact me at . Sincerely, Priyank Pham, 08/17/2022 7:44:49 AM This report has been signed electronically.
--- NOTE | 2022-08-17 07:47 | OP.CCLET_ITS ---
08/17/2022 Yeison Miner Re : Colonoscopy procedure for Amelia Hester Dear Isidra This procedure was performed on August. My impressions and recommendations are as follows: Impressions : - Congested mucosa in the entire examined colon. Biopsied. - The examined portion of the ileum was normal. Recommendations : - Discharge patient to home. - Resume previous diet. - Continue present medications. - Await pathology results. - Repeat colonoscopy in 5 years for surveillance. My findings are described in the full procedure note, which is enclosed. If I can be of further assistance, please feel free to contact me at . Sincerely, Priyank Pham, 08/17/2022 7:47:17 AM This report has been signed electronically.
--- NOTE | 2022-08-17 07:47 | OP.COLON_ITS ---
Patient Name: Amelia Hester Procedure Date: 08/17/2022 7:20 AM Date of : 1965 Age: 56 Procedure: Colonoscopy Indications: Screening for colorectal malignant neoplasm, This is the patient's first colonoscopy Providers: Priyank Pham DO Referring MD: Priyank Pham DO Medicines: Monitored Anesthesia Care Patient Profile: This is a 56 year old female. Refer to note in patient chart for documentation of history and physical. Patient has symptoms of chronic abdominal cramping and acute epigastric abdominal pain. Last Colonoscopy: date unknown. Unable to locate last colonoscopy report. Complications: No immediate complications. Procedure: Pre-Anesthesia Assessment: - Prior to the procedure, a History and Physical was performed, and patient medications and allergies were reviewed. The risks and benefits of the procedure and the sedation options and risks were discussed with the patient. All questions were answered and informed consent was obtained. Patient identification and proposed procedure were verified by the physician in the pre-procedure area. Mental Status Examination: alert and oriented. Airway Examination: normal oropharyngeal airway and neck mobility. Respiratory Examination: clear to auscultation. CV Examination: normal. Prophylactic Antibiotics: The patient does not require prophylactic antibiotics. Prior Anticoagulants: The patient has taken no previous anticoagulant or antiplatelet agents. ASA Grade Assessment: II - A patient with mild systemic disease. After reviewing the risks and benefits, the patient was deemed in satisfactory condition to undergo the procedure. The anesthesia plan was to use monitored anesthesia care (MAC). Immediately prior to administration of medications, the patient was re-assessed for adequacy to receive sedatives. The heart rate, respiratory rate, oxygen saturations, blood pressure, adequacy of pulmonary ventilation, and response to care were monitored throughout the procedure. The physical status of the patient was re-assessed after the procedure. After I obtained informed consent, the scope was passed under direct vision. Throughout the procedure, the patient's blood pressure, pulse, and oxygen saturations were monitored continuously. The colonoscope was introduced through the anus and advanced to the terminal ileum. The colonoscopy was performed without difficulty. The patient tolerated the procedure well. The quality of the bowel preparation was good. Scope In: 7:24:30 AM Scope Withdrawal Time 0 hours 8 minutes 34 seconds Scope Out: 7:35:11 AM Total Procedure Duration Time 0 hours 10 minutes 41 seconds Findings: An area of mildly congested mucosa was found in the entire colon. Biopsies were taken with a cold forceps for histology. Verification of patient identification for the specimen was done. Estimated blood loss was minimal. The terminal ileum appeared normal. No additional abnormalities were found on retroflexion. Non-bleeding external and internal hemorrhoids were found during retroflexion. The hemorrhoids were Grade I (internal hemorrhoids that do not prolapse). Impression: - Congested mucosa in the entire examined colon. Biopsied. - The examined portion of the ileum was normal. Recommendation: - Discharge patient to home. - Resume previous diet. - Continue present medications. - Await pathology results. - Repeat colonoscopy in 5 years for surveillance. Procedure Code(s): --- Professional --- 67578, Colonoscopy, flexible; with biopsy, single or multiple CPT copyright 2017 [employer]. All rights reserved. The codes documented in this report are preliminary and upon packaging specialist review may be revised to meet current compliance requirements. Priyank Pham DO 08/17/2022 7:47:17 AM This report has been signed electronically. Number of Addenda: 0 Note Initiated On: 08/17/2022 7:20 AM
== END 2022-08-17 08:43 | disposition home or self-care (01) ==
LOC: EN 06:10 → AC 06:29
PROVIDERS: PCP Nurse Practitioner Family; Referring Provider Nurse Practitioner Family; Visit Provider Internal Medicine Gastroenterology
PROC: 0DJD8ZZ Inspection of Lower Intestinal Tract, Via Natural or Artificial Opening Endoscopic (ICD-10-PCS; CPT 45378; principal; 2022-08-17 07:10)
DX: Z12.11 Encounter for screening for malignant neoplasm of colon (principal); K25.9 Gastric ulcer, unspecified as acute or chronic, without hemorrhage or perforation; K64.0 First degree hemorrhoids; F17.210 Nicotine dependence, cigarettes, uncomplicated; K29.80 Duodenitis without bleeding; K21.00 Gastro-esophageal reflux disease with esophagitis, without bleeding; K58.0 Irritable bowel syndrome with diarrhea; K29.70 Gastritis, unspecified, without bleeding; K31.89 Other diseases of stomach and duodenum; K22.70 Barrett's esophagus without dysplasia
CPT/HCPCS: 45380; 43239; 88305; 88313; 88342; J7120; J2405

== ENCOUNTER → 2023-03-22 | Outpatient (CLI) | payer OTHER, SELFPAY ==
--- NOTE | 2023-03-22 07:19 | BI_ITS ---
MAMMOGRAPHY - BILATERAL SCREENING REASON FOR EXAM: Female, 57 years old. Routine annual screening examination. PERTINENT HISTORY: Grandmother with breast cancer. Aunt with breast cancer. TECHNIQUE: Digital bilateral breast abhi (3D mammographic acquisition) in the CC and MLO projections. 2-D mediolateral oblique (MLO) and craniocaudad (CC) views of both breasts were obtained. CAD: Full Field Digital Mammography with Computer Added Detection was performed. COMPARISON: Comparison is made with prior study March 21, 2022 and March 15, 2021. FINDINGS: Breast Composition: The breasts are extremely dense, which lowers the sensitivity of mammography. There are no dominant masses or suspicious calcifications. No other significant abnormalities are identified. There has been no significant change since the prior study. BI/SCRN MAMM (CAD)W/ABHI BILAT IMPRESSION: Stable bilateral screening mammogram. Yearly follow-up mammogram recommended. (A) ASSESSMENT CATEGORY: BIRADS Category 1: Negative. A letter regarding these results will be sent to the patient by the facility within 30 days. Approximately 10% of breast cancers are not detected by mammography. A normal mammogram should not delay biopsy of a clinically suspicious abnormality. [id number] Electronically Signed: Aime Zimmerman MD at 8:29 EDT ,
== END | disposition home or self-care (01) ==
LOC: OPBI 07:17
PROVIDERS: PCP Nurse Practitioner Family; Referring Provider Nurse Practitioner Family; Visit Provider Nurse Practitioner Family
DX: Z12.31 Encounter for screening mammogram for malignant neoplasm of breast (principal)
CPT/HCPCS: 77063; 77067

== ENCOUNTER → 2023-06-12 | Outpatient (CLI) | payer OTHER, SELFPAY ==
--- NOTE | 2023-06-12 08:04 | ART_ITS ---
Reason For Study: Atherosclerosis Procedure A bilateral lower extremity continuous wave Doppler with analog waveform analysis,segmental pressures,and ankle brachial indexes without exercise. Left Segmental Pressures Left brachial= 88mmHg. Left thigh = 104mmHg. Left calf = 99mmHg. Left posterior tibial artery = 108mmHg. Left dorsalis pedis artery = 99mmHg. Left digit = 94 mmHg. The left dorsalis pedis waveforms are biphasic. The left posterior tibial artery waveforms are biphasic. Right Segmental Pressures Right brachial= 132mmHg. Right thigh = 85mmHg. Right calf = 75mmHg. Right posterior tibial artery = 89mmHg. Right dorsalis pedis artery = 87mmHg. Right digit = 52 mmHg. The right dorsalis pedis waveforms are monophasic. The right posterior tibial artery waveforms are biphasic. Indices The right ankle brachial index by the dorsalis pedis is 0.66. The right ankle brachial index by the posterior tibial artery is 0.67. The right digital-brachial index is 0.39. The left ankle brachial index by the dorsalis pedis is 0.75. The left ankle brachial index by the posterior tibial artery is 0.82. The left digital-brachial index is 0.71. VL/Lower Ext Art Exam w/o Exercis Interpretation Summary Moderate disease right leg LORI 0.67 and mild left leg with LORI 0.82. Ordering Physician: Mel Dinero Referring Physician: MEL DINERO ACID CRANE OPERATOR-C Performed By: Padmaja Sherwood RVT
--- NOTE | 2023-06-12 08:04 | CDU_ITS ---
Reason For Study: Carotid stenosis Rt. Velocities/BP Lt. Velocities/BP Prox CCA 88.1/31.5 cm/sec. Prox CCA 102.3/33.5 cm/sec. Mid CCA 93.8/32.2 cm/sec. Mid CCA 97.4/28.6 cm/sec. Dist CCA 88.3/35.5 cm/sec. Dist CCA 135.7/48 cm/sec. Prox ICA 92.5/28.6 cm/sec. Prox ICA 80.2/21.2 cm/sec. Mid ICA 103.5/37.2 cm/sec. Mid ICA 128.4/38.9 cm/sec. Dist ICA 94.9/39.7 cm/sec. Dist ICA 126.6/44.4 cm/sec. Rt. ICA/CCA = 1.17. Lt. ICA/CCA = 1.26. Prox ECA 115.6/20.6 cm/sec. Prox ECA 266/33.3 cm/sec. Rt. Vert. 81.4/24.9 cm/sec. Right Extracranial There is heterogeneous, irregular atherosclerotic plaque noted in the right common carotid artery. There is heterogeneous, irregular atherosclerotic plaque noted in the right internal carotid artery. There is heterogeneous, irregular atherosclerotic plaque noted in the right external carotid artery. Antegrade flow is noted in the right vertebral artery. Left Extracranial There is heterogeneous, irregular atherosclerotic plaque noted in the left common carotid artery. There is heterogeneous, irregular atherosclerotic plaque noted in the left internal carotid artery. There is heterogeneous, irregular atherosclerotic plaque noted in the left external carotid artery. Retrograde flow noted in the left vertebral artery. Procedure Carotid Duplex 18592. This is a Carotid Duplex examination using B-mode, color flow and specral Doppler. Exam performed in department. VL/Carotid Duplex Ultrasound Interpretation Summary Mild (<50%) stenosis right extracranial internal carotid. Moderate (50-69%) amor nosis left extracranial internal carotid. Flow within the right verterbral artery is anteg rade. Flow within the left verterbral artery is retrograde, consistent with a subclavian steal phenom enon. Ordering Physician: Yeison Miner Referring Physician: Yeison Miner Performed By: Padmaja Sherwood RVT
== END | disposition home or self-care (01) ==
PROVIDERS: PCP Nurse Practitioner Family; Referring Provider Nurse Practitioner Family; Visit Provider Nurse Practitioner Family
DX: I70.203 Unspecified atherosclerosis of native arteries of extremities, bilateral legs (principal)
CPT/HCPCS: 93880; 93923

== ENCOUNTER → 2023-10-19 | Outpatient (CLI) | payer OTHER, SELFPAY ==
--- NOTE | 2023-10-19 15:44 | CT_ITS ---
STUDY: CTA OF THE ABDOMINAL AORTA AND BILATERAL LOWER EXTREMITIES REASON FOR EXAM: Female, 57 years old. Atherosclerosis of [place] arteries of extremities with intermittent claudication. TECHNIQUE: Axial CT angiography multi-detector data acquisition was obtained following intravenous administration of 100mL Isovue-370 contrast. Axial images and MIP images were reconstructed from the axial data set. Post-processing of the angiographic images was performed, with multiplanar reformation and 3D reconstruction. MIPS images were obtained. Individualized dose optimization techniques were used for this CT. COMPARISON: None. FINDINGS: The visualized lung bases are unremarkable. The visualized portions of the heart are within normal limits. Normal liver. There is non-visualization of the gallbladder, which may be secondary to either contraction or a prior cholecystectomy. Normal spleen. Normal pancreas. Normal bilateral adrenal glands. Normal right kidney. Normal left kidney. Normal visualized stomach. Normal small intestine. Normal colon. There is non-visualization of the appendix. Normal inferior vena cava. Normal retroperitoneum. Normal urinary bladder. Normal abdominal wall. There are diffuse degenerative changes of the visualized lumbar spine. There is an unremarkable-appearing IVC. Abdominal aorta: There are calcifications of the abdominal aorta. This is consistent for atherosclerotic disease. There is no abdominal aortic aneurysm. Celiac and superior mesenteric arteries: There is mild diffuse narrowing. Inferior mesenteric artery: There is mild diffuse narrowing. Right renal artery(arteries): There is severe diffuse narrowing. Left renal artery(arteries): There is severe diffuse narrowing. Right common iliac artery: Occluded with distal reconstitution. Right external iliac artery: There is mild diffuse narrowing. Right internal iliac artery: There is mild diffuse narrowing. Left common iliac artery: There is severe diffuse narrowing. Left external iliac artery: There is mild diffuse narrowing. Left internal iliac artery: There is mild diffuse narrowing. RIGHT LOWER EXTREMITY Right common femoral artery: There is mild diffuse narrowing. Right profundus femoris: No demonstrated narrowing. Right superficial femoral: No demonstrated narrowing. Right popliteal artery: No demonstrated narrowing. Right tibioperoneal trunk: No demonstrated narrowing. Right anterior tibial artery: No demonstrated narrowing. Right posterior tibial artery: No demonstrated narrowing. Right peroneal artery: No demonstrated narrowing. LEFT LOWER EXTREMITY Left common femoral artery: There is mild diffuse narrowing. Left profundus femoris: No demonstrated narrowing. Left superficial femoral: No demonstrated narrowing. Left popliteal artery: No demonstrated narrowing. Left tibioperoneal trunk: No demonstrated narrowing. Left anterior tibial artery: No demonstrated narrowing. Left posterior tibial artery: No demonstrated narrowing. Left peroneal artery: No demonstrated narrowing. CT/CTA Abd w/Runoff W/WO Contrast IMPRESSION: Right renal artery(arteries): There is severe diffuse narrowing. Left renal artery(arteries): There is severe diffuse narrowing. Left common iliac artery: There is severe diffuse narrowing. Right common iliac artery: Occluded with distal reconstitution. Lower extremity runoff shows no evidence for critical stenosis or occlusion. Electronically Signed: Payam Lo MD at 20:18 EDT ,
== END | disposition home or self-care (01) ==
LOC: CT 15:38
PROVIDERS: PCP Nurse Practitioner Family; Referring Provider Surgery Vascular Surgery; Visit Provider Surgery Vascular Surgery
DX: I70.213 Atherosclerosis of native arteries of extremities with intermittent claudication, bilateral legs (principal); I77.1 Stricture of artery
CPT/HCPCS: 75635; Q9967

== ENCOUNTER → 2024-03-26 | Outpatient (CLI) | payer OTHER, SELFPAY ==
--- NOTE | 2024-03-26 08:43 | BI_ITS ---
MAMMOGRAPHY - BILATERAL SCREENING REASON FOR EXAM: Female, 58 years old. Routine annual screening examination. PERTINENT HISTORY: Grandmothers with breast cancer. Aunt with breast cancer. TECHNIQUE: Digital bilateral breast abhi (3D mammographic acquisition) in the CC and MLO projections. 2-D mediolateral oblique (MLO) and craniocaudad (CC) views of both breasts were obtained. CAD: Full Field Digital Mammography with Computer Added Detection was performed. COMPARISON: Comparison is made with prior study of March 22, 2023 and March 21, 2022. FINDINGS: Breast Composition: The breasts are extremely dense, which lowers the sensitivity of mammography. There are no dominant masses or suspicious calcifications. No other significant abnormalities are identified. There has been no significant change since the prior study. BI/SCRN MAMM (CAD)W/ABHI BILAT IMPRESSION: Stable bilateral screening mammogram. Yearly follow-up mammogram recommended. (A) ASSESSMENT CATEGORY: BIRADS Category 1: Negative. A letter regarding these results will be sent to the patient by the facility within 30 days. Approximately 10% of breast cancers are not detected by mammography. A normal mammogram should not delay biopsy of a clinically suspicious abnormality. [id number] Electronically Signed: Aime Zimmerman MD at 10:00 EDT ,
== END | disposition home or self-care (01) ==
LOC: OPBI 08:42
PROVIDERS: PCP Nurse Practitioner Family; Referring Provider Nurse Practitioner Family; Visit Provider Nurse Practitioner Family
DX: Z12.31 Encounter for screening mammogram for malignant neoplasm of breast (principal)
CPT/HCPCS: 77063; 77067

== ENCOUNTER → 2025-06-02 | Outpatient (CLI) | payer BC, SELFPAY ==
--- NOTE | 2025-06-02 08:49 | BI_ITS ---
EXAM: SCRN MAMM (CAD)W/ABHI BILAT DATE: 06/02/2025 CLINICAL HISTORY: F, Age 59 y/o , SCREENING Grandmother with breast cancer. Aunt with breast cancer. TECHNIQUE: Procedure Code: [id number] Modality: MG Procedure: SCRN MAMM (CAD)W/ABHI BILAT COMPARISON: Prior exam(s) dated March 26, 2024.. FINDINGS: TISSUE DENSITY: The breasts are extremely dense, which lowers the sensitivity of mammography. Bilateral Breast Mammographic Findings: No significant masses, calcifications or other abnormalities are identified. No suspicious masses, areas of developing architectural distortion, or suspicious calcifications. There has been no significant interval change. BI/SCRN MAMM (CAD)W/ABHI BILAT IMPRESSION: Stable bilateral screening mammogram. OVERALL FINAL ASSESSMENT BI-RADS 1: NEGATIVE. RECOMMENDATION: Routine annual follow-up in 1 Year Additional Recommendation none A letter with findings and recommendations will be mailed to the patient. Reading Location: [facility]
== END | disposition home or self-care (01) ==
PROVIDERS: PCP Nurse Practitioner Family; Referring Provider Nurse Practitioner Family; Visit Provider Nurse Practitioner Family
DX: Z12.31 Encounter for screening mammogram for malignant neoplasm of breast (principal)
CPT/HCPCS: 77063; 77067